=== PATIENT | female | born 1980 | race Caucasian/White ===

== ENCOUNTER → 2016-11-03 | Outpatient (CLI) | payer BC ==
[~2016-11-03] VITALS: Ht 165.1 cm; Wt 90.7 kg
[~2016-11-03] MED LIST: COLACE100 MG PO; ENDOCET 5-3251 EACH PO; IBUPROFEN800 MG PO; LOESTRIN1 EACH PO; OMEPRAZOLE40 M1 PO; PRILOSEC10 MG PO; VITAFOL-OB+DHA1 EACH PO
== END | disposition home or self-care (01) ==
LOC: AMB 07:48
PROC: 0DJ08ZZ Inspection of Upper Intestinal Tract, Via Natural or Artificial Opening Endoscopic (ICD-10-PCS; principal; 2016-11-03)
DX: R12 Heartburn (principal); K21.9 Gastro-esophageal reflux disease without esophagitis; K59.09 Other constipation; Z86.32 Personal history of gestational diabetes; F17.200 Nicotine dependence, unspecified, uncomplicated; Z80.0 Family history of malignant neoplasm of digestive organs; Z83.3 Family history of diabetes mellitus

== ENCOUNTER 2017-03-17 20:24 | Emergency (ER) | payer OTHER ==
[~2017-03-17] VITALS: Ht 165.1 cm; Wt 91.7 kg
[2017-03-17 20:45] LABS: HEMATOCRIT 41.8 % (36.0-46.0); MCH 29.6 PG (29.0-34.0); MCV 87.1 FL (83-99); MEAN PLAT.VOLUME 9.6 uM^3 (9.5-12.4); PLATELET COUNT 283 K/uL (156-360); RBC DIS.WIDTH-CV 12.9 % (11.8-14.6); RBC DIS.WIDTH-SD 40.8 % (39-53)
[2017-03-17 20:53] LABS: CHLORIDE 105 mEq/L (99-109); POTASSIUM 4.5 mEq/L (3.7-5.4); SODIUM 139 mEq/L (136-147)
[2017-03-17 20:55] LABS: GLUCOSE 132 mg/dL (70-99)
[2017-03-17 20:56] LABS: ANION GAP 10 MEQ/L (2-14)
[2017-03-17 20:58] LABS: TOTAL BILIRUBIN 0.4 mg/dL (0.0-1.0)
[2017-03-17 20:59] LABS: ALKALINE PHOSPHATASE 72 IU/L (3-129); GFR ESTIMATE (CALCULATED) > 59 mL/min/
[2017-03-17 21:00] LABS: UREA NITROGEN (BUN) 9 mg/dL (9-23)
[2017-03-17 21:02] LABS: LIPASE 26 U/L (1.0-51.0)
[2017-03-17 21:08] LABS: QUANTITATIVE HCG < 4.0 MIU/ML
[2017-03-17 21:10] LABS: ADD MIUA? NO; BILIRUBIN NEGATIVE; BLOOD NEGATIVE; COLOR YELLOW ((YELLOW)); GLUCOSE (STRIP) NEGATIVE; KETONES NEGATIVE; LEUKOCYTES NEGATIVE; NITRITE NEGATIVE; PROTEIN (STRIP) NEGATIVE; SPECIFIC GRAVITY 1.013 (1.000-1.030); UCUL ADDED? NO; UROBILINOGEN 0.2 MG/DL (0.2-1.0)
[2017-03-17 21:31] LABS: POC NON-PRINT COM 1 ND
[2017-03-17] MEDS ORDERED: NORA-BE0.35 MG PO (21:45)
[2017-03-17] MEDS ORDERED: RANITIDINE HCL300 MG PO (21:46)
[2017-03-17] MEDS ORDERED: BUPROPION HCL75 MG PO (21:46)
[2017-03-17] MEDS ORDERED: BENTYL20 MG PO (23:03)
[2017-03-17] MEDS ORDERED: FLAGYL500 MG PO (23:03)
[2017-03-17] MEDS ORDERED: CIPRO500 MG PO (23:03)
[2017-03-17 23:23] LABS: BASOPHIL COUNT 0.1 K/uL (0-0.1); EOSINOPHIL (%) 0.1 % (0-5); IMMATURE GRANULOCYTE (%) 0.6 % (0.0-0.7); IMMATURE GRANULOCYTE COUNT 0.1 K/uL; INSTRUMENT ABS NEUTROPHIL CT 17.7 K/uL; LYMPHOCYTE COUNT 1.9 K/uL (1.0-2.8); MONOCYTE (%) 3.5 % (3-12); MONOCYTE COUNT 0.7 K/uL (0-0.8); NEUTROPHIL (%) 86.2 % (45-76); NEUTROPHIL COUNT 17.7 K/uL (1.8-6.4)
[2017-03-17 23:38] VITALS: BP 128/78
== END 2017-03-17 23:39 | disposition home or self-care (01) ==
LOC: EME 20:24
PROVIDERS: Physician Assistant
DX: K52.9 Noninfective gastroenteritis and colitis, unspecified (principal); Z90.49 Acquired absence of other specified parts of digestive tract; F17.200 Nicotine dependence, unspecified, uncomplicated
CPT/HCPCS: 74177; 80053; 81003; 82272; 83690; 84702; 85025; 85027; 99281; 99284; J7030